=== PATIENT | female | born 1995 | race Caucasian/White ===

== ENCOUNTER 2019-12-13 07:16 | Emergency (ER) | payer MEDICAID ==
[~2019-12-13] VITALS: Ht 154.9 cm; Wt 69.4 kg
[2019-12-13 07:31] VITALS: Ht 154.9 cm; Wt 69.4 kg
[2019-12-13 08:48] VITALS: BP 121/85
== END 2019-12-13 08:48 | disposition home or self-care (01) ==
LOC: ED 07:16
DX: N39.0 Urinary tract infection, site not specified (principal)